=== PATIENT | male | born 1990 | race African-American/Black ===

== ENCOUNTER 2017-09-22 08:39 | Emergency (ER) | payer OTHER ==
[2017-09-22] MEDS: PENICILLIN G BENZ 1.2 MIL UNIT SYG IM (10:08)
[2017-09-22 19:34] LABS: RAPID PLASMA REAGIN NONREACTIVE (NR)
[2017-09-26 06:56] LABS: HERPES SIMPLEX 1 DNA NOT DETECTED; HERPES SIMPLEX 2 DNA NOT DETECTED; HERPES SIMPLEX PCR SOURCE ORAL LESIONS
== END 2017-09-22 10:27 | disposition home or self-care (01) ==
LOC: FTE 08:39
DX: K13.79 Other lesions of oral mucosa (principal); Z20.2 Contact with and (suspected) exposure to infections with a predominantly sexual mode of transmission
CPT/HCPCS: 36415; 86592; 87529; 87591; 96372; 99284-25